=== PATIENT | female | born 1995 | race Asian ===

== ENCOUNTER 2018-07-17 20:03 | Emergency (ER) | payer OTHER ==
[~2018-07-17] VITALS: Ht 167.6 cm; Wt 48.0 kg
[2018-07-17 20:06] VITALS: TEMP 36.3; Ht 167.6 cm; Wt 48.0 kg
[2018-07-17] MEDS ORDERED: LIDOCAINE 1% BUFFERED INJ 20 ML VIAL INFIL STA (20:20)
[2018-07-17] MEDS ORDERED: CEPHALEXIN 500MG HOME PACK 1 EA BTL PO STA (22:06)
[2018-07-17] MEDS ORDERED: CEPH500C PO (22:26)
--- NOTE | 2018-07-17 22:27 | EMERGENCY ROOM VISIT NOTE ---
ED Visit Note First contact with patient: 20:08 Chief Complaint: "Left ring finger in car door". History of Present Illness: This patient is a 23-year-old female who presents to the Emergency Department via private vehicle accompanied by male referred by [facility] for evaluation of their right fourth digit distal laceration. Patient sustained the laceration earlier today when she actually showed a car door on her finger. They report a moderate amount of bleeding initially. They deny any numbness or tingling into the distal extremity. They report no decreased range of motion of the affected digit. Patient rates her current discomfort as a 8/10. She is unsure of her tetanus status. Medications: As noted below Allergies: None PMH: No pertinent SHx: Patient is currently a [employer] student. ROS: All pertinent positive and negative review of systems are appropriately documented in the History of Present Illness. Physical Exam: VITAL SIGNS - Vital signs and nursing notes were reviewed. Stable. Afebrile. GENERAL -23-year-old female appearing her stated age who is in no acute distress. Communicates well with provider and answers questions appropriately. SKIN -examination of the patient's left fourth digit elicits an intact nail with evidence of germinal matrix/cuticle avulsion. The skin has been removed and the proximal portion of the medial nail is exposed. Minimal bleeding from the site. There is small purple discoloration of the nail just distal to this. No large subungual hematoma. No other laceration that require repair is noted. Small abrasion noted to the ventral aspect. No bony deformity. Neurovascular status intact. MUSCULOSKELETAL - Laceration as described above. +5/5 strength appreciated of the affected digit. Full range of motion of the affected digit. NEUROLOGIC - Spinothalamic tract was found to be intact with ability to discriminate sharp versus dull sensation. No sensory defects of the dorsal column were appreciated utilizing light touch for evaluation. VASCULAR - Capillary refill was brisk. IMAGING: The patient presents a disc from [facility] who notes that they believe they see a small fracture. Upon my evaluation of these 2 views to include lateral and AP, there is a questionable nondisplaced, transverse fracture at the distal tuft of the patient's left fourth digit. ED Course: Patient was seen and evaluated by myself as well as the attending physician. Risks and benefits of performing primary wound closure versus no repair were discussed with the patient who verbalizes understanding. Verbal consent was obtained prior to performing the procedure. Decision was made to try and attempt to relocate the medial proximal portion of the nail under the existing skin to allow better healing and improved chance of nail regrowing. 5 cc of 1% buffered lidocaine without epinephrine was used to perform a digital block of the left fourth digit. The wound was cleansed and prepped in the typical sterile fashion utilizing normal saline and Betadine. The wound was sterilely draped. Once proper anesthetization was established, the wound was further examined and demonstrated macerated tissue around the proximal medial portion of the exposed nail with underlying nailbed and no viable tissue to talk the nail underneath. The wound was copiously irrigated with normal saline and Betadine. I discussed this with the attending physician who also personally attempted to replace the proximal medial portion of the nail under the skin and unfortunately it appears that this has been avulsed. I discussed this with the on-call orthopedic surgeon, Dr. fabiola gaona. He will see the patient in the office on Wednesday. Patient is to receive a phone call from his office. This was dressed with a bacitracin dressing and finger splint. She will be covered with Keflex to prevent infection. She is to return with worsening. Patient tolerated the procedure well. No complications were met. she is to identify her tetanus status with [facility] and I suspect it should be up-to- date. She was educated on how to do daily dressing changes. She is to undo the dressing, clean the region, then placed bacitracin, a small Xeroform dressing, as well as gauze and the finger splint identical/similar to how it was done today. She as well as the accompanying male verbalized understanding. Patient educated on worrisome symptoms for return visit to the Emergency Department. Patient discharged to home in good condition. In the evaluation and treatment of this patient, the following differential diagnoses were considered: Finger Fracture, Finger Dislocation, Finger Sprain, Finger Contusion, [place] Finger, or Mallet Finger. Current/Historical Medications Scheduled Cephalexin Monohydrate (Keflex), 500 MG PO TID Vital Signs Date Time Temp Pulse Resp B/P (MAP) Pulse Ox O2 Delivery O2 Flow Rate FiO2 07/17/18 22:40 58 18 105/59 100 07/17/18 20:06 36.3 58 18 115/69 94 Room Air Medications Administered Medications (Trade) Dose Ordered Sig/Faye Route Start Time Stop Time Status Last Admin Dose Admin Cephalexin Monohydrate (Keflex 500MG Home Pack) 1 homepack NOW STAT PO 07/17/18 22:06 07/17/18 22:07 DC 07/17/18 22:37 1 HOMEPACK Departure Information Impression Primary Impression: Crush injury to finger Dispostion Home / Self-Care Condition GOOD Prescriptions Cephalexin Monohydrate (Keflex) 500 Mg Cap 500 MG PO TID for 5 Days, #15 CAP Prov: Gilmar Hutton PA-C 07/17/18 Referrals [facility] (PCP) Stan Diop MD Patient Instructions My [facility] Additional Instructions Discharge Instructions: Please wear the splint for comfort until you see the orthopedic doctor. Please also inquire about your tetanus status with [facility]. Proper wound care is essential for adequate wound healing and infection prevention. Please do not submerge the finger. Keflex 500 mg which is 1 tablet every 8 hours to prevent infection. Your given the first few tablets here with the remainder to be filled at pharmacy. Look for signs of infection of the wound including: increased pain, swelling, foul discharge, streaking, or increased temperature. If any of these are noticed you should return to the Emergency Department for further assessment and treatment. As with any laceration you may have received nerve damage to the surrounding tissues. This damage may or may not be permanent. You should keep the area covered with sunscreen for the first 6 months to 1 year when at risk for exposure to help minimize scarring. You can also use scar reducing creams or Vitamin E oil to help minimize scarring. For pain control, you can use the following [id number]-[id number] medicines (if >12 yo): - Regular strength (325mg/tab) Tylenol (acetaminophen) 2 tabs every 4-6 hours as needed. Do not exceed 12 tablets in a 24 hour period. Avoid taking more than 3 grams (3000 mg) of Tylenol per day. This includes any other sources of acetaminophen you may take on a regular basis. - Regular strength (200 mg/tab) Advil (ibuprofen) 1-2 tabs every 4-6 hours as needed. Do not exceed a dose of 3200 mg per day. Please expect a phone call from orthopedics. This should be for Charlene. This is with Dr. Diop. If you do not receive a call please call his number or return here/call here at [phone]. Return to the emergency department if your symptoms worsen despite treatment course outlined above.
[2018-07-17 22:40] VITALS: BP 105/59; PULSE 58; O2SAT 100
== END 2018-07-17 22:43 | disposition home or self-care (01) ==
LOC: C.EDB 20:06 → C.EDD 22:43
DX: S61.314A Laceration without foreign body of right ring finger with damage to nail, initial encounter (principal); W23.0XXA Caught, crushed, jammed, or pinched between moving objects, initial encounter